=== PATIENT | male | born 1955 | race Caucasian/White ===

== ENCOUNTER → 2019-08-18 | Outpatient (CLI) | payer MEDICARE, OTHER | LOC: M.RAD 08-11 16:37 → M.MRI 14:30 | DX: M47.816 Spondylosis without myelopathy or radiculopathy, lumbar region (principal); M41.86 Other forms of scoliosis, lumbar region; M48.062 Spinal stenosis, lumbar region with neurogenic claudication; M62.81 Muscle weakness (generalized); M51.87 Other intervertebral disc disorders, lumbosacral region ==